=== PATIENT | female | born 1955 | race Caucasian/White ===

== ENCOUNTER → 2020-10-05 | Outpatient (CLI) | payer OTHER ==
--- NOTE | 2020-10-05 18:32 | RAD ---
Exam: Cervical spine 2 views INDICATION: Neck pain TECHNIQUE: Frontal and lateral views of the cervical spine Comparisons: None FINDINGS: There is straightening of cervical spine which may positional. Vertebral body heights are well-mainta ined. Evaluation of the cervicothoracic junction is limited secondary to body habitus. There is multilevel degenerative disc disease throughout the cervical spine greatest at C4-C5 and C5- C6. Mild bilateral facet arthropathy is also noted. Visualized paraspinal soft tissues are unremarkable. IMPRESSION: Spondylotic change in the cervical spine as described above. Electronically signed by: Kyara Coelho MD (10/05/2020 6:29 PM) KENNEDY
--- NOTE | 2020-10-05 18:35 | RAD ---
Exam: Lumbar spine 2 views INDICATION: Lower back pain TECHNIQUE: Frontal and lateral views lumbar spine Comparisons: None FINDINGS: Vertebral body heights are well-maintained. There is mild straightening of the lumbar spine which may positional. There is degenerative disc disease in the lumbar spine greatest at L4-L5 and L5-S1. Diffuse bilateral facet arthropathy is also noted. There is also interposition of the spinous processes of the lower t horacic and upper lumbar spine. Visualized paraspinal soft tissues are unremarkable. IMPRESSION: 1. Mild spondylotic changes lumbar spine as described above. 2. 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
== END ==
LOC: RAD 10:06
PROVIDERS: ATTEND Anesthesiology Pain Medicine
DX: M47.812 Spondylosis without myelopathy or radiculopathy, cervical region (principal); M47.816 Spondylosis without myelopathy or radiculopathy, lumbar region
CPT/HCPCS: 72040; 72100

== ENCOUNTER → 2021-01-25 | Outpatient (CLI) | payer OTHER ==
--- NOTE | 2021-01-25 11:25 | RAD ---
EXAM: Right wrist, 2 views. HISTORY: Carpal tunnel syndrome. COMPARISON: None. FINDINGS: 2 views of the right wrist are obtained. There is no fracture, dislocation or subluxation. IMPRESSION: No acute osseous finding. Electronically signed by: Helena Cervantes MD (01/25/2021 11:22 AM) [id number]
--- NOTE | 2021-01-25 11:27 | RAD ---
EXAM: Left knee, 2 views. HISTORY: Pain. COMPARISON: None. FINDINGS: 2 views of the left knee are obtained. There is mild compartment joint space narrowing and spurring. There is also patellofemoral compartment spurring. There is trace joint fluid without a sig nificant effusion. IMPRESSION: Mild medial and patellofemoral compartment osteoarthritis of the left knee. No acute osse ous finding. Electronically signed by: Helena Cervantes MD (01/25/2021 11:23 AM) [id number]
== END ==
LOC: RAD 10:11
PROVIDERS: ATTEND Anesthesiology Pain Medicine
DX: Z02.71 Encounter for disability determination (principal); G56.01 Carpal tunnel syndrome, right upper limb; M17.12 Unilateral primary osteoarthritis, left knee; M25.562 Pain in left knee; M25.531 Pain in right wrist
CPT/HCPCS: 73100; 73560